=== PATIENT | female | born 1985 | race Caucasian/White ===

== ENCOUNTER 2021-03-04 10:26 | Emergency (ER) | payer OTHER, SELFPAY ==
--- NOTE | ~2021-03-04 | XR_ITS ---
EXAMINATION: XR abdomen/kub 1V EXAM DATE: 03/04/2021 11:36 INDICATION: Constipation . TECHNIQUE: Frontal projection of the upper abdomen, frontal projection lower abdomen/pelvis for inter pretation. There is no prior study for comparison. FINDINGS: There is expected amount of colonic stool and gas. No small bowel dilation, nonobstructiv e bowel gas pattern. There are no suspicious calcifications identified. There is no organomegaly suspected. The bones are unremarkable. There is no free intraperitoneal air. The lung bases are clear. IMPRESSION: Unremarkable abdomen x-ray exam. Reviewed, dictated and finalized at location A.
[2021-03-04 10:58] VITALS: BP 115/79; PULSE 80; RESP 14; TEMP 36.4; O2SAT 99
--- NOTE | 2021-03-04 11:12 | ED.FEMALEGU ---
HPI - Female Genitourinary General Chief complaint: Urogenital-Female Stated complaint: UTI? lower back pain Time Seen by Provider: 03/04/21 11:11 History of Present Illness HPI Narrative: 35 yo female presents to the ED for c/o back pain. right lower back pain for 3-4 days. Worse with movement. Started after doing yoga for the first time. Worse after a float trip 2 days ago. Also notes urinary frequency and constipation. Took stool softeners yesterday and had a bowel movement. No dysuria, weakness, numbness, vomiting. Related Data Home Medications Medication Instructions Recorded Confirmed prenat.vits,patrick,[id number] 1 tablet PO DAILY 03/04/21 [ Vitamin] Allergies Allergy/AdvReac Type Severity Reaction Status Date / Time Penicillins Allergy Unknown Unknown Verified 03/04/21 11:12 Review of Systems Review of Systems: All systems reviewed & are unremarkable except as noted in HPI and below Constitutional: Constitutional: Denies chills Cardiovascular: Cardiovascular: Denies chest pain Respiratory: Respiratory: Denies dyspnea Gastrointestinal: Gastrointestinal: Reports nausea and Denies vomiting Genitourinary: Genitourinary: Denies hematuria [facility] Social History Social History (Updated 03/04/21 @ 11:26 by Ricardo Jimenez MD) Gender identity (if verbalized by the patient): Female Sexual Orientation (if Verbalized by the Patient): Straight or Heterosexual Exam Const: General: healthy appearing, no acute distress and alert Orientation/consciousness: patient oriented x3 HENMT: Head: normal to inspection Neck: Neck: normal visual inspection Chest: Chest palpation & inspection: no tenderness Resp: Effort & Inspection: normal respiratory effort Auscultation: clear to auscultation bilaterally, no rales, no rhonchi and no wheezes Cardio: Jugular venous distension: no JVD Rate: regular rate Rhythm: regular rhythm Heart sounds: no murmurs GI: Inspection: non-distended GI Palp: Yes Soft to palpation and No Tenderness to palpation present (GI) Back/Spine/Pelvis: Thoracic/Lumbar Spine: thoracic and lumbar spine normal to inspection and other (right lateral lower back tenderness) Skin: General skin exam: normal color Neuro: General: patient oriented x3, moves all extremities and CN's II-XI intact bilaterally Speech: normal speech Gait exam (Neuro): Normal gait present Extrem: General: no edema Psych: Appearance: well kempt Affect: normal affect Course Vital Signs Vital signs: Vital Signs Temperature 36.4 C L 03/04/21 10:58 Pulse Rate 80 03/04/21 10:58 Respiratory Rate 14 03/04/21 10:58 Blood Pressure 115/79 03/04/21 10:58 Pulse Oximetry 99 03/04/21 10:58 Temperature 36.4 C L 03/04/21 10:58 Pulse Rate 80 03/04/21 10:58 Respiratory Rate 14 03/04/21 10:58 Blood Pressure 115/79 03/04/21 10:58 Pulse Oximetry 99 03/04/21 10:58 MDM - Female Genitourinary MDM Narrative Medical decision making narrative: Seems musculoskeletal. Will check urine and KUB. UA negative KUB shows some stool, but not abnormal Medical Records Attestation: I reviewed the patient's medical records. Lab Data Attestation: I reviewed the patient's lab results. Labs: Lab Results 03/04/21 Range/Units 11:17 Urine Color Yellow (Yellow) Urine Appearance Clear (Clear) Urine pH 6.0 (5.0-9.0) Ur Specific [place] 1.024 (1.001-1.035) Urine Protein 1+ H (Negative) mg/dL Urine Glucose (UA) Negative (Negative) mg/dL Urine Ketones Negative (Negative) mg/dL Ur Blood (Man) Negative (Negative) Urine Nitrate Negative (Negative) Urine Bilirubin Negative (Negative) Urine Urobilinogen 2.0 H (<2.0) mg/dL Leukocyte Esterase Rfl Trace H (Negative) ANA/UL Urine RBC 0-2 (0-2) /hpf Urine WBC 0-3 /hpf Ur Squamous Epith Cells Occasional (Few) /hpf Urine Mucus Rare /lpf UCG Bedside Result Negative
[2021-03-04 11:33] LABS: Add Urine Microscopic? YES; Appearance Urine Clear (Clear); Bilirubin Urine Negative (Negative); Blood Urine Negative (Negative); Color Urine Yellow (Yellow); Glucose Urine UA Negative (Negative); Ketones Urine Negative (Negative); Leukocyte Esterase Ur Trace LEU/UL (Negative); Mucus Urine Rare /lpf; Nitrate Urine Negative (Negative); Protein Urine 1+ mg/dL (Negative); RBC Urine 0-2 /hpf (0-2); Specific Grav Ur 1.024 (1.001-1.035); Squamous Epithelial Cell Urine Occasional /hpf (Few); WBC Urine 0-3 /hpf
[2021-03-04] MEDS: KETOROLAC (*BKC) 60 MG/2 ML VIAL IM (11:44)
== END 2021-03-04 12:11 | disposition home or self-care (01) ==
PROVIDERS: Family Medicine; Emergency Provider Emergency Medicine
DX: M54.5 Low back pain (principal); K59.00 Constipation, unspecified
CPT/HCPCS: 74018; 81001; 81025; 96372; 99283; J1885

== ENCOUNTER 2023-03-03 02:33 | Day surgery (SDC) | payer OTHER, SELFPAY ==
[2023-02-24 13:38] VITALS: BMI 31.1
--- NOTE | 2023-02-24 13:39 | PC.NURSE ---
Report to the Outpatient Waiting Room, entrance under the green pavilion located off [facility], at time _0600_ on date _03-03-2023_. Planned Procedure Time: _0730_. Time changes happen often and if your time is changed the preop area will call you the afternoon before. - You and your visitor will be asked to self-screen and do not enter if you have any COVID symptoms. - A mask is optional within the hospital at this time. Patients may have clear liquids (water, carbonated beverages, clear teas, apple juice) until 3 hours prior to surgery with a maximum of 20 ounces. - No food from midnight until time of surgery Take the following medications with a SIP of water the morning of surgery: ___None DO NOT STOP ANY OF YOUR OTHER PRESCRIPTION MEDICATIONS PRIOR TO SURGERY ?EXCEPT THE FOLLOWING Medications to discontinue per physician None Date to take last dose Please no make-up, nail kyrgyz, hairspray, perfume, deodorant, or body powder the day of surgery. No jewelry (including any body piercings) or valuables the day of surgery, leave them at home. Please take a shower or bath the night before, or the morning of, surgery with an antibacterial soap. Wear comfortable, loose fitting clothing. - Jewelry must be removed prior to entering the operating room. Rings and piercings that are not removed may be cut off. - The hospital will not accept responsibility for valuables. - Please leave all valuables, including medications, at home the day of surgery. If you are going home after surgery, a licensed catering truck driver must drive you home. - NO public transportation without another adult if you receive anesthesia. - We recommend that an adult stay with you for 24 hours following discharge. - We also recommend that you do not drive, make important decision, drink alcoholic beverages, or take any drugs that were not prescribed by your health care provider for at least 24 hours after your discharge time. Follow any additional instructions given to you from your surgeon. If you or anyone in your household have experienced Covid symptoms in the past week, please notify your surgeon or the nurse liaison at the phone number below for possible testing. Telephone instructions given to __Patient__and asked if any additional questions and then verbalized understanding. Patient advised to call surgeon office or pre surgery nurse liaison [phone] if any additional questions.
--- NOTE | 2023-03-02 14:07 | P.PNAN_ITS ---
Anes - Initial Pre Proc Eval Procedure: Operation Date: 03/03/23 08:30 Proposed Procedures p Laparoscopic Bilateral Salpingectomy - Bin Nassar MD Date/Time: 03/02/23 14:07 Surgeon: Bin Nassar MD Pre Op Diagnosis: Female Sterilization Patient Data Age: 37 Gender: F Height: 1.57 m Weight: 77.3 kg Allergies Allergy/AdvReac Type Severity Reaction Status Date / Time Penicillins AdvReac Intermediate Nausea and Verified 03/03/23 06:16 Vomiting Home Medications Medication Instructions Recorded Confirmed Type No Home Medications 02/24/23 02/24/23 History Patient hx anesthesia problems: none Family hx anesthesia problems: none Results Review: All pre-operative results and documents have been reviewed as part of the pre- operative evaluation. [facility] Social History Social History (Updated 03/04/21 @ 11:26 by Ricardo Jimenez MD) Smoking packs per day: 0.5 Smoking cigarettes per day: 10.0 Years smoked: 18 Smoking pack-years: 9.00 Tobacco type: cigarettes and e-cigarettes/vaping Additional smoking assessment comments: Currently vaping. Substance use type: marijuana Other substance usage details: twice a day Living arrangements: with family Gender identity (if verbalized by the patient): Female Sexual Orientation (if Verbalized by the Patient): Straight or Heterosexual Spiritual care concerns: No Anes - Eval Final PreProcedure Day of Procedure 03/02/23 14:07 Patient weight: obese Heart: regular rate and rhythm Lungs: clear to auscultation Airway: Mallampati scale class II Neurological: alert and oriented Last oral intake: >/= 8 hours ASA classification: III Emergent: no Anesthetic plan: proceed Anesthesia type and monitoring: general ETT and standard monitoring Results Review: All pre-operative results and documents have been reviewed as part of the pre- operative evaluation. Informed Consent: The patient's anesthetic plan and its attendant risks and benefits were discussed with the patient/family/POA. Questions were solicited and answers provided to the satisfaction of the patient/family/POA.
[2023-03-03] VITALS (10 sets, daily range): BP systolic 95–118; BP diastolic 64–96; PULSE 48–73; RESP 13–18; TEMP 36.1–36.2; O2SAT 93–100
[2023-03-03] MEDS: LACTATED RINGERS 1,000 ML 30 ML IV CONT ×2 (07:09→09:14)
[2023-03-03] MEDS: ACETAMINOPHEN 500 MG TABLET 1000 MG PO (07:09)
[2023-03-03] MEDS: KETOROLAC 15 MG/ML VIAL (*BKC) IV PUSH (07:10)
--- NOTE | 2023-03-03 08:02 | WPDHPUPDATE1 ---
History and Physical Update Update Date/Time: 03/03/23 08:02 History and Physical has been reviewed, including an updated exam of the patient. There are NO changes in the patient's condition. Risks, benefits, and alternatives have been discussed and questions answered. Patient agrees to proceed with procedure.
--- NOTE | 2023-03-03 09:25 | W.PM.PROC2 ---
Procedure Note - Detailed Date of Procedure 03/03/23 Pre-op Diagnosis Female Sterilization Post-op Diagnosis Same Procedure Performed Laparoscopic bilateral salpingectomy, right ovarian cystectomy Surgeon Bin Nassar MD Anesthesia General Indications Unwanted fertility Findings Large hemorrhagic right ovarian cyst that is actively bleeding, hemoperitoneum Description of Procedure The patient was taken the operating room. She was prepped and draped in the dorsal lithotomy position after induction of general anesthesia. A 5 mm skin incision was made in the left upper quadrant of the abdominal skin. A 5 mm trocar was inserted the intra-abdominal cavity under direct visualization of the scope. Pneumoperitoneum was achieved. A 5 mm trocar was inserted in the left lower quadrant identical fashion. A 5 mm infraumbilical trocar was inserted in identical fashion as well. The bilateral fallopian tubes were removed. This was done by using a LigaSure cautery. The mesosalpinx adjacent to the tube was cauterized transected with LigaSure. This was initiated in the area the ovary and in a stepwise fashion moved medially to the area of the cornu of the uterus. Once there the fallopian tube was cauterized and transected. This was done in identical fashion on each side. The fallopian tubes were taken out through the left lower quadrant trocar site. Right ovarian cyst was removed with LigaSure cautery and monopolar cautery along with some blunt dissection. The cut surfaces were cauterized. The cyst capsule and remove cyst were taken out through the left lower quadrant trocar site. This cyst was actively bleeding. The pneumoperitoneum was reduced. The trocars removed. The skin was closed with subcuticular 4 Monocryl and covered with Dermabond. She was taken to cover stable condition. Sponge lap and needle counts were correct x2. Estimated Blood Loss 5 Drains No Packing No Pathology Yes Complications No immediate complications Condition Stable Disposition PACU
[2023-03-03] MEDS: fentaNYL CITRATE INJ (*CRX) 100 MCG/2 ML VIAL 25 MCG IV PUSH ×2 (10:02→10:09)
[2023-03-03] MEDS: oxyCODONE HCL (*CRX) 5 MG TAB IR PO (10:54)
== END 2023-03-03 11:20 | disposition home or self-care (01) ==
PROVIDERS: Visit Provider Obstetrics & Gynecology
PROC: (CPT 49320; principal; 2023-03-03 08:30)
DX: Z30.2 Encounter for sterilization (principal); N83.201 Unspecified ovarian cyst, right side; K66.1 Hemoperitoneum; F17.290 Nicotine dependence, other tobacco product, uncomplicated; F17.210 Nicotine dependence, cigarettes, uncomplicated; F12.90 Cannabis use, unspecified, uncomplicated; E66.9 Obesity, unspecified; Z68.30 Body mass index [BMI] 30.0-30.9, adult
CPT/HCPCS: 58661; 58662; 88302; 88305; A9270; J0330; J1100; J1885; J2250; J2405; J2704; J3010; J7030; J7120

== ENCOUNTER 2024-08-26 18:31 | Emergency (ER) | payer OTHER, SELFPAY ==
--- OUTSIDE RECORDS SUMMARY | 2024-08-26 18:33 | XMS_ITS | Continuity of Care Document ---
Author Organization [facility] Address [email or web address] [address] [place] [address] Phone Care Team Providers Care Water Jet Loom Fixer Name Role Phone Ky Duran MD Unavailable Unavailable Advance Directives Directive Yes / No Effective Date File Name No Information Encounters Encounter Description Practice Location Reason(s) For Visit Diagnoses Date Provider Providers Copied on Encounter [facility], [address] [place], [place], [id number], [place] tel:[phone] [facility] No Information Roger Mcpherson. [address] [employer], [place], [id number], [place]. tel:[phone] Family History Family Member Type Diagnosis Age At Onset No Information Payers Payer name Insurance type Covered libertarian ID Authoriza tion(s) No Information Social History Type Description Quantity Date Captured Comments Sex Female Smoking Status No Information Chief Complaint And Reason For Visit No Information Plan Of Treatment Date Type Action Status No Information History Of Present Illness Encounter Date Complaint History Of Prese nt Illness No Information Instructions Date Instruction Additional Infor mation No Information Assessments Type Assessment Date No Information
--- OUTSIDE RECORDS SUMMARY | 2024-08-26 18:33 | XMS_ITS | Continuity of Care Document ---
Author Organization [facility] Address [address] [facility] [address] [place] [address] Phone Care Team Providers Care Multiple Punch Press Operator Name Role Phone Jacob Edwards Unavailable Unavailable Advance Directives Directive Yes / No Effective Date File Name No Information Encounters Encounter Description Practice Location Reason(s) For Visit Diagnoses Date Provider Providers Copied on Encounter [facility], [address], [place], [place], [id number], [place] tel:[phone] [facility] [place] [facility] [place] No Information [address] Doisy Edward. [address] [facility] , [address], [place], [address], [place]. tel:[phone] Family History Family Member Type Diagnosis Age At Onset No Information Payers Payer name Insurance type Covered alliance party ID Authoriza tikhadijah(s) [employer] [place] [id number] Social History Type Description Quantity Date Captured Comments Sex Female Smoking Status No Information Chief Complaint And Reason For Visit No Information Reason For Referral Reason For Referral No Information History Of Present Illness Encounter Date Complaint History Of Prese nt Illness No Information Functional Status Date Functional Assessmen t No Information Instructions Date Instruction Additional Infor mation No Information Assessments Type Assessment Date No Information Patient Care Teams Name Effective Dates (start - stop) Status Members No Information
[2024-08-26 18:34] VITALS: BP 137/72; PULSE 84; RESP 16; TEMP 36.4; O2SAT 97
--- OUTSIDE RECORDS SUMMARY | 2024-08-27 00:47 | XMS_ITS | Continuity of Care Document ---
Author Organization [facility] Address [address] [facility] [address] [place] [address] Phone Care Team Providers Care Materials Management Manager Name Role Phone Jacob Edwards Unavailable Unavailable Advance Directives Directive Yes / No Effective Date File Name No Information Encounters Encounter Description Practice Location Reason(s) For Visit Diagnoses Date Provider Providers Copied on Encounter [facility], [address], [place], [place], [id number], [place] tel:[phone] [facility] [place] 2[place] No Information [address] Doisy Edward. [address] [facility] , [address], [place], [address], [place]. tel:[phone] Family History Family Member Type Diagnosis Age At Onset No Information Payers Payer name Insurance type Covered green party ID Authoriza tikhadijah(s) [employer] [place] [id number] Social History Type Description Quantity Date Captured [...]
--- OUTSIDE RECORDS SUMMARY | 2024-08-27 00:48 | XMS_ITS | Data Portability ---
Author Organization [facility] Address [address] [place] [address] Care Team Providers Care Chronometer Tester Name Role Phone ROBERTMAGI Primary Care Provider Assessment No assessment recorded. Plan of Treatment Reminders Order Date Submit Date Provider Last Modified By Organization Details Last Modified Time Details Appointments None recorded. Lab None recorded. Referral None recorded. Procedures None recorded. Surgeries salpingecto my, laparoscopi c (SURG) 2022 023 [facility], [address], [place], [address], 10:31:05 Imaging US, pelvis 2022 023 [address], [address], [place], [address], 19:39:02 US, transvagina l 2022 [address]23 [address], [address], [place], [address], 19:39:02 Medication Orders None recorded. Patient TargetsNo targets recorded. Patient InstructionsNo instructions recorded. Reason for Referral None Reported. Results Created Date Observation Date Name Description Value Unit Range Abnormal Flag Note LastModifiedBy Organization Detail LastModifiedTime 01/07/2001/06/2023 IMAGE GUIDE D PAP AND HPV REGAR DLESS image guided Pap, HPV regardless of Pap result SEE RESULT S BELOW CASE REPOR T: Cytol ogy Gynec ologi patrick Repor t Case: [id number] Autho latosha baldomero Provi analisa: Kaylin Kimball, CANDIDO [place] cted: 01/06 1404 Order ing Locat ion: [place] Patho logcele Recei soham: 01/07 0749 First Scree n: Yancy Beltran ica Speci men: Scree taylor Pap - Image d, Cervi x STATE MENT OF ADEQU ACY: Satis facto ry for evalu ation Trans forma tion zone compo nent prese nt FINAL DIAGN OSIS: Negat jason for Intra epith elial Lesio n or Eric lay (NIL) . Elect sharita noble by Yancy Beltran ica on 2022 at 9:29 AM ----- ----- ----- ----- ----- ----- ----- ----- ----- ----- ----- ----- ----- ----- ----- ----- ----- ---- HPV RESUL TS: HPV mRNA E6/E7 : No HPV mRNA Detec dagoberto NOTE: This high risk HPV mRNA assay detec ts fourt een high- risk HPV types (16, 18, 31, 33, 35, 39, 45, 51, 52, 56, 58, 59, 66, 68) witho ut diffe renti ation . COMME NT: This speci men was revie wed by a Cytot echno logis t and/o r Patho logis t (as indic ated in this repor t) after evalu ation using the Thinp rep Imagi ng Syste m. CLINI PATRICK INFOR MATIO N: Menst rual Statu s: LMP (if appli cable ): Clini patrick Histo ry/Pr eviou s Pap: Type of Neopl quinton (if appli cable ): Signi fican t Clini patrick Findi ngs: Other Histo ry: Hormo juliana (if appli cable ): PAP EDUCA JF L NOTE: The Pap Test is a scree taylor test with an inher ent false negat jason rate. Liqui d-bas ed sampl ing may decre ase, but will not elimi amanda, false negat jason resul ts. A negat jason resul t does not precl ude the prese nce and/o r devel opmen t of disea se, since the prese nce of abnor mal cells in the sampl e depen ds on the locat ion of the lesio n and sampl ing techn ique. Beryl nued regul ar scree taylor is the best metho d of cance r preve ntion . If repor dagoberto cytol ogic findi ng do not corre late with physi patrick and/o r histo rical findi ngs, furth er inves tigat ion is recom perry d, as clini yash sherman nted. Not Available [facility] (Lab) [address], [place], [address], 01/08/2023 10:33:03 01/20/20 23 01/19/2023 US, pelvi s No observ ation record ed. [email or web address] [place] [address], [place], [address], 01/19/2023 17:12:57 01/20/20 23 01/19/2023 US, trans vagin al No observ ation record ed. [email or web address] [place] [address], [place], [address], 01/19/2023 17:12:47 01/20/20 23 01/19/2023 US, pelvi s No observ ation record ed. [email or web address] [address], [place], [address], 01/29/2023 11:02:24 Result Notes None recorded. Problems Name Problem SNOMED Code Status Onset Date Resolution Date Notes Provider Name and Address Organization Details Recorded Time Cyst of ovary 03971689 Active 2014 Other and unspecified ovarian cyst;Recorde d Elsewhere: No Location: [facility] e: EHR Chronic: N Practice ID: [id number] Billabl e Time: 01:30:00 PM Not Available [facility] 16:59:14 Problem Notes None recorded. Procedures Surgical History Date Name Laterality Status Provider Name and Address Organization Details Recorded Time 03/03/20 SALPINGECTOMY, LAPAROSCOPIC (SURG) completed Katey Busch [facility] 03/04/2023 10:50:42 08/08/19 21 Control Implant Removal completed [facility] [address], [place], [address], [facility] 08/08/2020 11:12:45 02/23/20 20 Control Implant Insertion completed [facility] [address], [place], [address], [facility] 02/23/2020 13:16:22 02/23/20 20 IUD Removal completed Mer[facility] Perez [facility] [address], [place], [address], [facility] 02/23/2020 13:16:32 01/31/20 Date of Last Pap Smear completed Nova Reynolds [facility] 01/06/2023 14:06:51 Imaging Results Imaging Date Name Status LastModified by Organization Details LastModified Time 01/19/2023 US, pelvis completed [email or web address], [place], [address], 01/19/2023 17:12:57 01/19/2023 US, transvaginal completed [email or web address] [address], [place], [address], 01/19/2023 17:12:47 01/19/2023 US, pelvis completed [email or web address] [address], [place], [address], 01/29/2023 11:02:24 Procedure Notes None recorded. Medical Equipment None Reported. Allergies Allergen ID Allergen Name Allergen Category Reaction Reaction Severity Criticality Documentation Date Start Date Code Code System Note Provider Name and Address Organization Details Recorded Time 169 Product containin g penicilli n and antibioti c (product) medicatio n Not available Not available Not available 02/23/2020 77319 05 SNOMED Zoya Jim [facility] [place] - [facility] 0 12:30:20 Medications Name Sig Start Date Stop Date Status Note LastModified by Organization Details LastModified Time Mirena 21 mcg/24 hr (up to 8 years) 52 mg intrauter ine device Take by intraute rine route. 02/22 completed Not Available Not Available Not Available loperamid e 2 mg capsule 01/30 completed Not Available Not Available Not Available hydrocodo ne 5 mg-acetam inophen 325 mg tablet 01/06 completed Not Available Not Available Not Available oxycodone -acetamin ophen 5 mg-325 mg tablet active Not Available Not Available Not Available phenazopy ridine 100 mg tablet Take 1 tablet 3 times a day by oral route for 7 days. 01/30 completed Not Available Not Available Not Available ibuprofen 600 mg tablet 01/06 completed Not Available Not Available Not Available levofloxa kayley 500 mg tablet 01/30 completed Not Available Not Available Not Available ondansetr on 4 mg disintegr ating tablet 01/06 completed Not Available Not Available Not Available 08/01 (28) 1 mg-20 mcg (21)/75 mg (7) tablet take 1 tablet by oral route every day 03/08 completed Prescrib ed Elsewher e: No Locat ion: [facility] M odify By: dmrose E ncounter DateTime : 08/30/19 15 01:55:05 PM Not Available Not Available Not Available nitrofura ntoin monohydra te/macroc rystals 100 mg capsule Take 1 capsule every 12 hours by oral route for 7 days. 01/30 completed Not Available Not Available Not Available PEYMAN (28) 3 mg-0.02 mg tablet take 1 tablet by oral route every day 08/30 completed Prescrib ed Elsewher e: No Locat ion: [facility] M odify By: cmedical Encount er DateTime : 08/29/19 01:30:00 PM Not Available Not Available Not Available Nexplanon 68 mg subdermal implant nexplano n insert 08/08 completed Not Available Not Available Not Available Vitals Date Recorded Body height Body mass index (BMI) Body weight Systolic blood pressure Diastolic blood pressure Provider Name and Address Organization Details Last Updated DateTime 01/24/2023 158.12 cm 30.8 kg/m2 81665.7 g 144 mm[Hg] 79 mm[Hg] Lara [facility] 3 10:14:41 Date Recorded Body height Body mass index (BMI) Body weight Systolic blood pressure Diastolic blood pressure Provider Name and Address Organization Details Last Updated DateTime 02/25/2023 158.12 cm 30.7 kg/m2 48133.11 g 128 mm[Hg] 82 mm[Hg] [facility] 3 17:21:29 Date Recorded Body height Body mass index (BMI) Body weight Systolic blood pressure Diastolic blood pressure Provider Name and Address Organization Details Last Updated DateTime 03/12/2023 158.12 cm 30.5 kg/m2 83384.52 g 106 mm[Hg] 71 mm[Hg] [facility] 3 10:45:34 Social History Question Answer Notes LastModified by Organizat ion Details LastModified Time Tobacco Smoking Status Former Smoker Nova Reynolds [facility], [facility] 01/06/2023 14:06:26 Do You Have An Advance Directive? No Information not available 01/06/2023 What Is Your Level Of Alcohol Consumption? Occasional Information not available 01/06/2023 How Many Years Have You Consumed Alcohol? 12 Information not available 01/06/2023 Are You Blind Or Do You Have Difficulty Seeing? No Information not available 01/06/2023 What Is Your Level Of Caffeine Consumption? Moderate Information not available 01/06/2023 How Much Tobacco Do You Chew? None Information not available 01/06/2023 In The 14 Days Before Symptom Onset, Have You Had Close Contact With A Laboratory-confir med COVID-19 While That Case Was Ill? No Information not available 01/06/2023 In The 14 Days Before Symptom Onset, Have You Had Close Contact With A Person Who Is Under Investigation For COVID-19 While That Person Was Ill? No Information not available 01/06/2023 Have You Been To An Area Known To Be High Risk For COVID-19? No Information not available 01/06/2023 Are You Deaf Or Do You Have Serious Difficulty Hearing? No Information not available 01/06/2023 What Type Of Diet Are You Following? REGULAR Information not available 01/06/2023 What Is The Highest Grade Or Level Of School You Have Completed Or The Highest Degree You Have Received? DL15106-7 Information not available 01/06/2023 What Is Your Occupation? Unemployed Information not available 01/06/2023 Are There Any Guns Present In Your Home? No Information not available 01/06/2023 Do You Use Protection During Sex? No Information not available 01/06/2023 Do You Use Your Seat Belt Or Car Seat Routinely? Yes Information not available 01/06/2023 Do You Have Smoke And Carbon Monoxide Detectors In Your Home? Yes Information not available 01/06/2023 How Much Tobacco Do You Smoke? No Information not available 01/06/2023 Do You Feel Stressed (tense, Restless, Nervous, Or Anxious, Or Unable To Sleep At Night)? PT7744-6 Information not available 01/06/2023 Do You Use Any Illicit Or Recreational Drugs? No Information not available 01/06/2023 Do You Use Sunscreen Routinely? Yes Information not available 01/06/2023 Have You Used IV Drugs? No Information not available 01/06/2023 Sex: Unknown Functional Status Question Answer Note LastModified by Organizat ion Details LastModified Time Do you have difficulty walking or climbing stairs? No Information not available 01/06/2023 Are you able to walk? YESWOREST Information not available 01/06/2023 Are you able to care for yourself? Yes Information not available 01/06/2023 Do you have difficulty dressing or bathing? No Information not available 01/06/2023 What is your exercise level? Occasional Information not available 01/06/2023 Mental Status None recorded. Family History Relationship Description Onset Age of this Age Resolved Age Notes LastModified by Organization Details LastModified Time Sister Asthma [email or web address] Not available 01/31/2020 09:30:25 Medical History Condition Response Allergies (Food, seasonal, environmental ) N Other N Drug/Latex Allergies/Reactions N Blood Transfusion N Breast Cancer N Dermatologic Disorders N Lung Disease N Defects or Inherited Disease N Breast Problem N Gestational Diabetes N Hematologic disorders N Anesthesia Complications N History of STI N Deep Vein Thrombosis N Polycystic ovary syndrome N Anxiety Disorder N Autoimmune disease N Arthritis N Polyps N Infertility N Acid Reflux (GERD) N History of abnormal pap N Cancer N Varicosities N Stroke N Neurologic/Epilepsy N Endometriosis N High Cholesterol N Fibromyalgia N Headaches N Kidney Disease N Heart Problems N Thyroid Problems N Kidney or Bladder Problems N GI Problems N Eating Disorder N Anemia N Art (IVF or FET) N Psychiatric Illness N Ovarian Cancer N Diabetes N Pulmonary (TB, Asthma) N Hepatitis/Liver Disease N No Past Medical History N Eczema N Urinary Tract Infection N Abuse/Domestic Violence N Asthma N Trauma/Violence N Depression/ depression N Heart Disease N Pre-Eclampsia N Hypertension N Osteoporosis N Thrombophilias N Gynecological History Statement/Question Response Flow Moderate Date of LMP 01/09/2023 On BCP's at Conception? N N Was last menstrual period normal Y STIs/STDs N HPV Vaccine Y Duration of Flow (days) 4 Current Control Method Sterilizati on Age at First Child 20 Frequency of Cycle (Q days) 28 Sexually Active? Y None Menses Monthly Y Age of first menstrual cycle 13 Date of Last Pap Smear 01/31/2020 Sexual Problems? N Desired Control Method None LMP Approximate N Obstetrics History GPAL:G 1 P 0 0 0 1 Type Value Living 1 Total 1 Past Encounters Encounter ID Performer Location Encounter Start Date Encounter Closed Date Diagnosis/Indication Diagnosis SNOMED-CT Code Diagnosis ICD10 Code Diagnosis Note [id number] Merly Perez [facility] [address],[place] [address] 10/28/2019 09:54:32 10/28/2019 11:38:01 Urinary tract infectious disease 67884161 N39.0 Subjective & objective measures consistent with UTI. We agreed on urine cx's & presumptiv e treatment with macrobid & pyridium. RTO prn Counseled on medication R/B's, Most common side effects, & use. All questions were answered to patient satisfacti on. Time spent in visit is a total of 15 mins with at least 50% of visit consisting of counseling and review of plan of care. [id number] Milton Nassar MD [place] [address],[place] [address] 01/31/2020 11:02:45 01/31/2020 21:53:08 [id number] Merly Perez [facility] [address],[place] [address] 01/31/2020 12:11:09 01/31/2020 12:33:38 Gynecologic examination 85620308 Z01.419 Take Calcium with Vitamin D 1200mg daily if not receiving in daily diet. It is strongly advised to have an annual flu shot and up can obtain at most pharmacies . If you have not had a TDap shot in the last 10 years you should obtain one as well. Discussed with patient & provided with informatio n regarding Gardisil vaccine to prevent the 4 strains for HPV that cause cervical cancer if under age 26. Encourage safe sexual practices, to use condoms and limit partners if not already in a monogamous relationsh ip. Do monthly self breast exams. Have mammogram yearly or every other year depending on family history. BRCA testing is now available for patients with strong genetic history of female cancer. If interested contact the office. Engage in daily exercise of low impact aerobic exercise 45-60 minutes 4-5 times weekly. Avoid tobacco and illicit drugs as well as using moderation with alcohol intake less than 1-2 8 oz beverages daily. This lifestyle behavior pattern will lead to less health conditions and longer life span. If BMI greater than 25 weight watchers or dietary consult advised. Patient received above instructio ns, and questions have been answered. If you have any questions please call or respond to this email. Patient was made aware of the patient portal and may obtain a paper copy of today's plan if desired. Contracept ion care management 585730903 Z30.9 Discussed all control options in depth and pt is interested in Nexplanon. Discussed all risks and benefits including irregular unschedule d bleeding. Pt verbalized understand ing and would like to proceed. She is aware that she needs to call us on the 1st day of her period to schedule placement. Will make appt for IUD removal & nexplanon insertion. [id number] Merly Perez [facility] [address] [address] 02/23/2020 12:16:47 02/23/2020 13:34:13 test negative 929509573 Z32.02 Contracept ion care management 543996767 Z30.9 Discussed all control options in depth and pt is interested in Nexplanon. Discussed all risks and benefits including irregular unschedule d bleeding. Pt verbalized understand ing and would like to proceed. She is aware that she needs to call us on the 1st day of her period to schedule placement. Will make appt for IUD removal & nexplanon insertion. Insertion of subcutaneous contraceptive 501916231 Z30.9 Patient is here currently on her menses. She was given all the r/b/a of placement of the Nexplanon device and has signed the consent. She is fully aware of all possible side effects of the device and has decided to move forward with placement. Insertion site was cleansed with betadine and 3cc lidocaine used for anesthesia . Device was placed in the left arm per usual fashion w/o complicati on and patient instructed to f/u in one month or earlier if there are any si/sx of infection or hypersensi tivity at the insertion site Removal of intrauterine device 65789737 Z30.432 She states the symptoms are of new onset. Patient is here due to the approachin g due date or the nature of her IUD and wishes to have it removed. She expressed understand ing. It was explained that she may have bleeding or spotting after the removal of the device today as well. If cannot see the strings of this device we will need to get an US image to make that the device is still in place and not in an unobtainab le position. She expressed understand ing of all the above instructio ns. [id number] [facility] [address] [address] 08/08/2020 10:36:44 08/08/2020 12:49:11 Removal of subcutaneous contraceptive 161167311 Z30.46 Removal site was cleansed with betadine [id number] lidocaine used for anesthesia . Device was removed in normal fashion without difficulty . Steristips and pressure bandage placed. REc PNV daily GOod diet/exerc ise Regular sa which will boost chances of . No further questions. [id number] RASHEED Siddiqui [place] [address] [address] 01/06/2023 13:41:48 01/06/2023 14:58:29 Gynecologic examination 39804700 Z01.419 Take Calcium with Vitamin D 1200mg daily if not receiving in daily diet. It is strongly advised to have an annual flu shot and up can obtain at most pharmacies . If you have not had a TDap shot in the last 10 years you should obtain one as well. Discussed with patient & provided with informatio n regarding Gardisil vaccine to prevent the 4 strains for HPV that cause cervical cancer if under age 26. Encourage safe sexual practices, to use condoms and limit partners if not already in a monogamous relationsh ip. Do monthly self breast exams. Have mammogram yearly or every other year depending on family history. BRCA testing is now available for patients with strong genetic history of female cancer. If interested contact the office. Engage in daily exercise of low impact aerobic exercise 45-60 minutes 4-5 times weekly. Avoid tobacco and illicit drugs as well as using moderation with alcohol intake less than 1-2 8 oz beverages daily. This lifestyle behavior pattern will lead to less health conditions and longer life span. If BMI greater than 25 weight watchers or dietary consult advised. Patient received above instructio ns, and questions have been answered. If you have any questions please call or respond to this email. Patient was made aware of the patient portal and may obtain a paper copy of today's plan if desired. WWEBC - condomsDis cussed BC options, interested in permanent sterlizati on, discussed option of MD consult if she would like to pursues this option.no hx of abnormal papslast pap 2019 - normalpap updated todaySTI testing declinedUT D with PCPPain with IC, mostly positional . Hx of ovarian cyst in the past. Would like updated TVUS - ordered Time spent in visit is a total of 30 mins with at least 50% of visit consisting of counseling and review of plan of care. Dyspareunia 42141282 N94 .10 Reproducti ve care management 501418143 Z31.9 [id number] Sayra Cornell [place] [address],[place] [address] 01/19/2023 13:28:34 01/19/2023 14:13:44 Pain in pelvis 18107721 R10.2 [id number] Milton Nassar MD [place] [address],[place] [address] 01/24/2023 09:56:52 01/24/2023 10:35:59 Female sterilization 42582316 Z30.2 This patient presents for female sterilizat ion. The patient desires tubal ligation. She is certain that she no longer wants to be fertile. We discussed sterilizat ion in detail. I described the procedure to the patient in detail. We discussed alternativ es. The patient knows they are highly effective reversible options. She understand s that the tubal ligation is permanent. We discussed failure rate. She understand s there is a failure rate of 3-4% lifetime. Tubal ligation is reversed. It is often not successful and leads to increased risk of ectopic . The patient understand s and is ready to proceed with laparoscop ic bilateral tubal ligation. She understand s the tubes we fulgurated . She return for informed consent process. Her surgery will be scheduled. [id number] Milton Nassar MD [place] [address],[place] [address] 02/25/2023 17:06:00 02/25/2023 18:14:23 Female sterilization 29438769 Z30.2 37-year-ol d female who desires female sterilizat ion. We have agreed to laparoscop ic bilateral salpingect darian. She understand s risks, benefits, and alternativ es. She has completed informed consent process and is ready to proceed. [id number] Jennie Clark [place] [address] [address] 03/04/2023 14:54:31 03/04/2023 14:56:58 [id number] Milton Nassar MD [place] [address] [address] 03/12/2023 10:29:16 03/12/2023 11:24:14 Postoperative visit 774093412 Z09 37-year-ol d female presents for postop follow-up. She is recovering normally. Her incisions are clean dry and intact. Her pain is Resolved from her ovarian cyst that was resected. Health Concerns Section Related Observation LastModified by Organization Detai ls LastModified Time None Recorded Concern Status LastModified by Organization Details LastModified Time None Recorded Advance Directives Directive N: Payers Encounter Date Sequence Insurance Name Policy Number Policy Briseno Covered Member ID Briseno Member ID Guarantor Name 01/19/2023 1 [facility] ON OR AFTER 01/10/21 (MEDICAID REPLACEMENT - HMO) Arminda Jo [id number] Arminda Jo 01/24/2023 1 [facility] ON OR AFTER 01/10/21 (MEDICAID REPLACEMENT - HMO) Arminda Jo [id number] Arminda Jo 02/25/2023 1 [facility] ON OR AFTER 01/10/21 (MEDICAID REPLACEMENT - HMO) Arminda Jo [id number] Arminda Jo 03/03/2023 1 [facility] ON OR AFTER 01/10/21 (MEDICAID REPLACEMENT - HMO) Arminda Jo [id number] Arminda Jo 03/12/2023 1 [facility] ON OR AFTER 01/10/21 (MEDICAID REPLACEMENT - HMO) Arminda Jo [id number] Armindadillan Jo Notes Date Note Type Note Provider Name and Address Organization Details Recorded Time 01/24/2023 text/html This patient presents for female sterilization. The patient desires tubal ligation. She is certain that she no longer wants to be fertile. We discussed sterilization in detail. I described the procedure to the patient in detail. We discussed alternatives. The patient knows they are highly effective reversible options. She understands that the tubal ligation is permanent. We discussed failure rate. She understands there is a failure rate of 3-4% lifetime. Tubal ligation is reversed. It is often not successful and leads to increased risk of ectopic . The patient understands and is ready to proceed with laparoscopic bilateral tubal ligation. She understands the tubes we fulgurated. She return for informed consent process. Her surgery will be scheduled. Milton Nassar MD [address], [place], [address], [facility] 01/24/2023 10:33:37 02/25/2023 text/html This patient is a 37-year-old female who presents for preoperative care. The patient would like sterilization and we have agreed to perform laparoscopic bilatera salpingectomy. We have discussed alternatives in detail. The patient understands the procedure. The procedure was described to the patient in great detail. the patient also understands the risks. The risks were also explained in detail. She understands that injuries May occur during surgery. She understands these injuries can result in hospitalization, more surgery, and severe illness. She understands there is risk of hemorrhage and infection. Milton Nassar MD [address], [place], [address], [facility] 02/25/2023 18:05:37 03/12/2023 text/html 37-year-old lisseth limon presents for postop follow-up. She is recovering normally. Her incisions are clean dry and intact. Her pain is Resolved from her ovarian cyst that was resected. Milton Nassar MD [address], [place], [address], [facility] 03/12/2023 11:23:33 OBGyn Episode Ob Episode Information Episode Created Date Number of Fetuses Patient Bloodtype Patient rh Status Prepregnancy Weight lbs Domestic Partner Domestic Partner Phone Father Name Lmft Status 01/31/20 20 1 CLOSED Fetus Data First Name Last Name Admitted to NICU Weight (g) Sex Living Outcome Pediatric Complications Fetus ID Race Codes Race Delivery Type [id number] Vaginal Delivery Edi Calculation Initial Edi Date Initial Exam Date Initial Exam Provider Initial Ultrasound Date Last Menstrual Period Date Ultra Sound Weeks Gestation 0 Eighteen To Twenty Week Edi Update Ultra Sound Date Fundal Height At Umbil Quickening Date Ultra Sound Latest Weeks Gestation Final Edi Confirmed By Final Edi Confirmed Date Final Edi Date Ultra Sound Latest Days Gestation 0 0 Menstrual History Last Menstrual Date Menses Monthly On Bcp Conception Prior Menses Frequency Hcg Plus Date Menarche Onset Age Delivery Information Delivery Date Delivery Type Labor Anesthesia Weeks Gestation Incision Type Labor Labor Length Hrs Delivered By Post Complications Tubal Sterilization Discharge Date Comments 7 oligohyd r amnios, hyperemes is, GBS+ Discharge Information Feeding Method Contraceptive Method Maternal HG B and HCT Levels
--- OUTSIDE RECORDS SUMMARY | 2024-08-27 00:48 | XMS_ITS | Continuity of Care Document ---
Author Organization [facility] Address [address] [place] [address] [place] [address] Phone Care Team Providers Care Certified Caregiver Name Role Phone Ky Duran MD Unavailable Unavailable Advance Directives Directive Yes / No Effective Date File Name No Information Encounters Encounter Description Practice Location Reason(s) For Visit Diagnoses Date Provider Providers Copied on Encounter [facility], [address] [place] [place], [id number], [place] tel:[phone] [facility] No Information Roger Mcpherson. [address] [place], [place], [id number], [place]. tel:[phone] Family History Family Member Type Diagnosis Age At Onset No Information Payers Payer name Insurance type Covered republican ID Authoriza tion(s) No Information Social History [...]
--- OUTSIDE RECORDS SUMMARY | 2024-08-27 00:48 | XMS_ITS | Data Portability ---
[facility] Address [address] [place] [address] Assessment No assessment recorded. Plan of Treatment Reminders Order Date Submit Date Provider Last Modified By Organization Details Last Modified Time Details Appointments None recorded . Lab TSH + free T4, serum 2014 015 [facility], [address] [place] [address], [facility] [address], [place], [address], 5 11:52:58 CMP, serum or plasma 2014 015 [facility], [address] [place] [address], [address], [place], [address], 5 11:52:58 Referral physical therapis t referral 2015 016 [email or web address], [address] [place], [address], 6 13:56:26 Procedures None recorded . Surgeries None recorded . Imaging None recorded . Medication Orders nicotine 14 mg/24 hr daily transder mal patch 2014 015 [id number], [address] [place], [place], [id number], 5 13:19:13 clonazep am 0.5 mg tablet 2014 015 [email or web address] [id number], [address] [place], [place], [id number], 5 14:03:38 Patient TargetsNo targets recorded. Patient Instructions Encounter Date Encounter Id Patient Instructions Last Modified By Organization Details Last Modified Time 07/18/2014 [id number] warm salt water gargle* [email or web address] Not available 07/18/2014 13:18:13 Reason for Referral Referring Physician: Annie Sharma, Internal Medicine, Encounter Date: 09/05/2015 Problems Name Problem SNOMED Code Status Onset Date Resolution Date Notes Provider Name and Address Organization Details Recorded Time Injury of finger [id number] Krys Sharma MD Attn: Jules alexandre,[address] [facility], [place], [address], [place] - [facility] 6 13:12:20 Finger joint stiff [id number] Krys Sharma MD Attn: Jules alexandre,[address] [facility], [place], [address], [facility] 6 13:12:20 Hand joint stiff 999190626 Active Jaelyn Majano LPN null, [place] - [facility] 6 13:57:28 Anxiety disorder [id number] Krys Sharma MD Attn: Jules alexandre,[address] [facility], [place], [address], [place] [facility] 6 13:12:20 Pharyngitis [id number] Krys Sharma MD Attn: Jules alexandre,[address] [facility], [place], [address], [place] [facility] 5 13:18:12 Tobacco user [id number] Krys Sharma MD Attn: Jules alexandre,[address] [facility], [place], [address], [place] - [facility] 5 13:18:12 Obesity [id number] Krys Sharma MD Attn: Jules alexandre,[address] [facility], [place], [address], [place] - [facility] 5 13:18:12 Problem Notes None recorded. Medical Equipment None Reported. Allergies No known drug allergies Medications Name Sig Start Date Stop Date Status Note LastModified by Organization Details LastModified Time amoxicilli n 500 mg capsule active Not Available Not Available Not Available nicotine 14 mg/24 hr daily transderma l patch Apply 1 patch every day by transderm al route for 28 days. active Not Available Not Available No t Available ibuprofen 800 mg tablet active Not Available Not Available Not Available hydrocodon e 5 mg-acetami nophen 325 mg tablet active Not Available Not Available No t Available clonazepam 0.5 mg tablet Take 0.5 tablets twice a day by oral route. 2014 active Not Available Not Available Not Avai lable acetaminop hen 300 mg-codeine 30 mg tablet active Not Available Not Available Not Available sulfametho xazole 800 mg-trimeth oprim 160 mg tablet active Not Available Not Available No t Available Microgesti n FE 08/01 (28) 1 mg-20 mcg (21)/75 mg (7) tablet active Not Available Not Available N ot Available intrauteri ne device (IUD) 2006 active Pt. currently still on IUD Not Available Not Available Not Available Vitals Date Recorded Respiratory rate Body weight Heart rate Body mass index (BMI) Body height Body temperature Systolic blood pressure Diastolic blood pressure Provider Name and Address Organization Details Last Updated DateTime 5 20 /min 14951.4 8001 g 74 /min 31.6 kg/m2 157.48 cm 98.2 [degF] 108 mm[Hg] 78 mm[Hg] Ramya Michaud MA [facility] 5 11:56:33 Date Recorded Body mass index (BMI) Body height Body weight Heart rate Body temperature Systolic blood pressure Diastolic blood pressure Provider Name and Address Organization Details Last Updated DateTime 6 30.7 kg/m2 157.48 cm 27073.5 1816 g 80 /min 98.3 [degF] 108 mm[Hg] 64 mm[Hg] Samreen Raymundo MA [facility] 6 12:38:45 Social History Question Answer Notes LastModified by Organizat ion Details LastModified Time Tobacco Smoking Status Current Every Day Smoker Ramya Michaud MA null, [facility] 07/18/2014 11:56:33 How Many Years Have You Smoked Tobacco? 9 [email or web address] Information not available 07/18/2014 Sex: Unknown Functional Status None recorded. Mental Status None recorded. Family History Relationship Description Onset Age of this Age Resolved Age Notes LastModified by Organization Details LastModified Time Maternal Grandfather Carcinoma of lung [email or web address] Not available 2014 11:56:32 Medical History Condition Response Coronary Artery Disease N Other N Atrial Fibrillation N High Blood Pressure N Depression N COPD N Blood Clots N Anxiety Disorder N Muscle, Joint, or Bone Problems N Acid Reflux (GERD) N Cancer N Stroke N High Cholesterol N Liver Disease N Headaches N Kidney or Bladder Problems N Thyroid Problems N GI Problems N Skin Problems N Anemia N Heart Attack ([place]) N Diabetes N Seizures/Epilepsy N Asthma N Allergies N Hepatitis N Osteoporosis N Heart Failure N Gynecological History Statement/Question Response Flow Light Menses Monthly N Duration of Flow (days) Age at Menarche 15 Current Control Method IUD Age at First Child 20 LMP Unknown Obstetrics History GPAL:G 0 P 0 0 0 0 Past Encounters Encounter ID Performer Location Encounter Start Date Encounter Closed Date Diagnosis/Indication Diagnosis SNOMED-CT Code Diagnosis ICD10 Code Diagnosis Note [id number] GINA Rodriguez (Adult Med) [address] [place] [address] 07/18/2014 10:34:45 07/18/2014 15:34:42 Anxiety disorder 757208483 Pharyngitis [id number] Tobacco user [id number] Obesity [id number] Keren PerezIsaiasJm is Tania (Adult Med) [address] [place] [address] 09/05/2015 11:43:02 09/05/2015 17:55:05 Anxiety disorder 735322641 F41.9 Right middle Injury of finger 8785878 8 S69.91XS Finger joint stiff 53030 8005 M25.649 Health Concerns Section Related Observation LastModified by Organization Detai ls LastModified Time None Recorded Concern Status LastModified by Organization Details LastModified Time None Recorded Advance Directives Directive None Recorded Payers Encounter Date Sequence Insurance Name Policy Number Policy Briseno Covered Member ID Briseno Member ID Guarantor Name 07/18/2014 1 [facility] - DOS PRIOR TO 2021 (MEDICAID REPLACEMENT - HMO) Arminda Jo [id number] Arminda Jo 09/05/2015 1 [facility] - DOS PRIOR TO 2021 (MEDICAID REPLACEMENT - HMO) Arminda Jo [id number] Arminda Jo Notes Date Note Type Note Provider Name and Address Organization Details Recorded Time 09/05/2015 text/html Cut palmar surface of right middle finger about 4 mths ago.. Healed well but finger stiff and doesn't bend Annie Sharma MD Attn: [address] [place], [address], [facility] 09/05/2015 13:14:10 OBGyn Episode No OBEpisode recorded.
== END 2024-08-27 00:47 | disposition left against medical advice (07) ==
LOC: ANHED 08-27 00:45
DX: K80.20 Calculus of gallbladder without cholecystitis without obstruction (principal)
CPT/HCPCS: 99199